=== PATIENT | female | born 1980 | race Caucasian/White ===

== ENCOUNTER 2022-08-12 10:03 | Emergency (ER) | payer BC ==
[2022-08-12 10:16] VITALS: O2SAT 98
--- NOTE | 2022-08-12 11:38 | XRAY ---
Indication: Headache and left eye vision change. No known injury. Multiple contiguous axial images obtained through the head without contrast. Comparison: None Normal appearing brain parenchyma, ventricles, and bony calvarium. Visualized paranasal sinuses and mastoid air cells are clear. Impression: Normal CT head without contrast exam.
--- NOTE | 2022-08-12 11:43 | ERPHSYRPT ---
- History of Present Illness Source: patient, other () Exam Limitations: no limitations Patient Subjective Stated Complaint: PT WAS SENT HERE FOR CLINIC FOR BLURRED VISION TO LEFT EYE FOR A COUPLE DAYS, WITH A HEADACHE, SHE STATES SHE HAS MIGRAINES AND TREATS THEM WITH EXCEDRIN. Triage Nursing Assessment: PT ALERT, ARRIVED PER WC, RESP EASY, SKIN W/D/P, ABLE TO UNDRESS, MOVES ALL EXT WELL Physician History: 42 yo WF w h/o migraine headaches present w a L parietal headache x 2 days. Pain is 2/10, sharp, and worse w bright lights. Pt states that her pain is typical for her, but it is her L blurry vision which is concerning her. She has had nausea wo vomiting. Pt denies fever/trauma/stiff neck/focal weakness. Timing/Duration: day(s) (2 days) Quality: sharpness Head Pain Location: parietal Severity of Pain-Max: moderate Severity of Pain-Current: mild Recent Head Trauma: occasional headaches Associated Symptoms: denies symptoms, vision changes Previous symptoms: same symptoms as today Allergies/Adverse Reactions: No Known Drug Allergies Allergy (Unverified 08/12/22 10:15) Home Medications: No Reportable Medications [No Reported Medications] 08/12/22 [History] Hx Influenza Vaccination/Date Given: No Hx Pneumococcal Vaccination/Date Given: No Immunizations Up to Date: Yes Travel Risk - International Travel Have you traveled outside of the country in past 3 weeks: No - Coronavirus Screening Are you exhibiting any of the following symptoms?: No Close contact with a COVID-19 positive Pt in past 14-21 Days: No - Vaccine Status Have you recieved a Covid-19 vaccination: Yes 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 - Review of Systems Constitutional: No Symptoms Eyes: No Symptoms, Vision Changes Ears, Nose, & Throat: No Symptoms Respiratory: No Symptoms Cardiac: No Symptoms Abdominal/Gastrointestinal: No Symptoms Genitourinary Symptoms: No Symptoms Musculoskeletal: No Symptoms Skin: No Symptoms Neurological: No Symptoms, Headache Psychological: No Symptoms Endocrine: No Symptoms Hematologic/Lymphatic: No Symptoms Immunological/Allergic: No Symptoms - Past Medical History Pertinent Past Medical History: Yes Neurological History: Migraines - Past Surgical History Past Surgical History: Yes Respiratory: Other - Social History Smoking Status: Current every day smoker Exposure to second hand smoke: Yes Drug Use: none Patient Lives Alone: No - Female History Hx Last Menstrual Period: JUNE Hx Now: No - Nursing Vital Signs Nursing Vital Signs: Initial Vital Signs Temperature 97.1 F 08/12/22 10:16 Pulse Rate 85 08/12/22 10:16 Respiratory Rate 18 08/12/22 10:16 Blood Pressure 144/94 08/12/22 10:16 O2 Sat by Pulse Oximetry 98 08/12/22 10:16 Pain Scale Pain Intensity 2 Hypertensive - Physical Exam General Appearance: no apparent distress Eye Exam: PERRL/EOMI, eyes nml inspection Ears, Nose, Throat Exam: normal ENT inspection, TMs normal, pharynx normal, moist mucous membranes Neck Exam: normal inspection, non-tender, supple, full range of motion, No meningismus, No mass, No Brudzinski, No Kernig's, No carotid bruit Respiratory Exam: normal breath sounds, lungs clear, airway intact, No respiratory distress Cardiovascular Exam: regular rate/rhythm, normal heart sounds, normal peripheral pulses, capillary refill <2 sec, No murmur Gastrointestinal/Abdominal Exam: soft, normal bowel sounds, No tenderness Extremity Exam: normal inspection, normal range of motion Mental Status Exam: alert, oriented x 3, 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 Exam: normal hearing, normal speech, PERRL, No abnormal eye position, No abnormal gag reflex Coordination/Gait Exam: normal gait, normal cerebellar function, negative Romberg's sign Motor/Sensory Exam: no motor deficit, no sensory deficit, no pronator drift, negative Babinski's sign DTR Exam: bicep (R): 2+, bicep (L): 2+ Skin Exam: normal color, warm, dry Lymphatic Exam: No adenopathy SpO2 Interpretation: normal SpO2: 98 O2 Delivery: Room Air - Course Nursing assessment & vital signs reviewed: Yes - CT Exams Head CT Interpretation: Discussed w/radiologist (CT head neg) Ordered Tests: Active Orders 24 hr Category Date Time Status HEAD WITHOUT CONTRAST [CT] Stat Exams 08/12/22 10:56 Completed Medication Summary Discontinued Medications Generic Name Dose Route Start Last Admin Trade Name Freq PRN Reason Stop Dose Admin Ketorolac Tromethamine 30 mg 08/12/22 12:33 08/12/22 12:42 Ketorolac Tromethamine 30 Mg/Ml Inj IM 08/12/22 12:34 30 mg STAT ONE Administration Ketorolac Tromethamine Confirm 08/12/22 12:36 Ketorolac Tromethamine 30 Mg/Ml Inj Administered 08/12/22 12:37 Dose 30 mg .ROUTE .STK-MED ONE Ketorolac Tromethamine Confirm 08/12/22 12:41 Ketorolac Tromethamine 30 Mg/Ml Inj Administered 08/12/22 12:42 Dose 30 mg .ROUTE .STK-MED ONE Prochlorperazine Edisylate 10 mg 08/12/22 12:34 08/12/22 12:42 Prochlorperazine Edisylate 10 Mg/2 Ml Vial IM 08/12/22 12:35 10 mg STAT ONE Administration Prochlorperazine Edisylate Confirm 08/12/22 12:36 Prochlorperazine Edisylate 10 Mg/2 Ml Vial Administered 08/12/22 12:37 Dose 10 mg .ROUTE .STK-MED ONE Prochlorperazine Edisylate Confirm 08/12/22 12:42 Prochlorperazine Edisylate 10 Mg/2 Ml Vial Administered 08/12/22 12:43 Dose 10 mg .ROUTE .STK-MED ONE - Progress Progress Note: 08/12/22 12:34 Nursing note and vital signs reviewed No food or housing insecurities noted IOP L eye 13mm mercury 30mg IM Toradol/10mg IM Compazine CT results reviewed and shared Additional history per 08/12/22 12:36 08/12/22 13:02 Serial neuro exams negative Pt reports that pain is very similar to her typical MGHA pain. 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
[2022-08-12] MEDS ORDERED: TORAdol 30 mg Injection IM ONE (12:33)
[2022-08-12] MEDS ORDERED: Compazine 10 MG/2 ML IM ONE (12:34)
[2022-08-12] MEDS ORDERED: TORAdol 30 mg Injection ONE ×2 (12:36→12:41)
[2022-08-12] MEDS ORDERED: Compazine 10 MG/2 ML ONE ×2 (12:36→12:42)
[2022-08-12 12:44] VITALS: BP 143/92; PULSE 71
== END 2022-08-12 12:59 | disposition home or self-care (01) ==
LOC: ED 10:03
DX: G43.109 Migraine with aura, not intractable, without status migrainosus (principal); H53.8 Other visual disturbances; R11.0 Nausea; Z72.0 Tobacco use
CPT/HCPCS: 70450; 96372; 99283; J1885